=== PATIENT | male | born 1945 | race Caucasian/White ===

== ENCOUNTER 2019-07-10 03:01 | Inpatient (IN) | payer MEDICARE, OTHER ==
[~2019-07-10] VITALS: Ht 187.9 cm; Wt 97.5 kg
[~2019-07-10 03:01] MED LIST: ALOGLIPTIN25 MG PO; BASAG SOL SQ; CRESTOR40 M1 PO; GLEEVEC400 M1 PO; GLIPIZIDE10 M2 PO; LISINOPRIL10 M1 PO; METFORMIN HYD1000 MG PO; NORVASC5 MG PO; TOPROL XL25 MG PO; TRAZODONE100 MG PO; VITAMIN D32000 UNI1 PO; VOLTAREN100 GM T
[2019-07-10 03:11] VITALS: BP 159/66
[2019-07-10 04:26] LABS: BILIRUBIN NEGATIVE (NEGATIVE); BLOOD 2+ (NEGATIVE); CLARITY SL CLOUDY (CLEAR); COLOR YELLOW (YELLOW); GLUCOSE 2+ (NEGATIVE); KETONE NEGATIVE (NEGATIVE); LEUKO ESTERASE TRACE (NEGATIVE); NITRITE NEGATIVE (NEGATIVE); UROBILINOGEN 0.2 E.U./dl (0.2-1.0)
[2019-07-10 04:35] LABS: BACTERIA 2+; RBC 31-40 rbc/hpf (0-2); WBC 41-50 wbc/hpf (0-5)
[2019-07-10 05:20] LABS: ALBUMIN 2.8 gm/dl (3.1-4.5); ALKALINE PHOSPHATASE 120 U/L (45-117); BUN 19 mg/dl (7-24); CHLORIDE 100 mmol/L (98-107); CREATININE 1.34 mg/dL (0.70-1.30); POTASSIUM 3.5 mmol/L (3.5-5.1); SGOT/AST 17 IU/L (3-35); SGPT/ALT 20 U/L (12-78); SODIUM 133 mmol/L (136-145); TOTAL PROTEIN 6.6 gm/dL (6.4-8.2)
[2019-07-10 05:21] LABS: BASO % 0.1 % (0.0-1.0); HEMATOCRIT 30.2 % (42.0-52.0); HEMOGLOBIN 10.5 g/dl (14.0-18.0); LYMPH # 2.3 10*3/uL (1.3-4.4); LYMPH % 10.8 % (27.0-41.0); MEAN CELL VOLUME 92.4 fl (80.0-94.0); MEAN CORPUSCULAR HGB 32.1 pg (27.0-31.0); MEAN CORPUSCULAR HGB CONC 34.8 g/dl (33.0-37.0); MEAN PLATELET VOLUME 10.7 fl (9.6-12.3); MONO # 1.2 10*3/uL (0.1-1.0); MONO % 5.5 % (3.0-9.0); NEUT # 17.9 10*3/uL (2.3-7.9); PLATELET COUNT AUTOMATED 242 10*3/uL (130-400); RED BLOOD COUNT 3.27 10*6/uL (4.50-5.90); RED CELL DISTRI WIDTH 11.8 % (0-14.5); WHITE BLOOD COUNT 21.6 10*3/uL (4.8-10.8)
[2019-07-10 05:23] LABS: TROPONIN I 0.067 ng/ml (<0.045)
[2019-07-10 06:56] VITALS: BP 132/61
--- NOTE | 2019-07-10 08:00 | NUR ---
JODY BARNES AWARE OF ELEVATED TROPONIN OF 0.1
--- NOTE | 2019-07-10 08:15 | NUR ---
Time: 814 A 74 year old FEMALE admitted to 5E under services of EMILIE WYNN DO. Pt. arrived via stretcher from ER. Chief complaint: URINARY FREQUENCY/FALL. PRASANTH PEDRAZA
[2019-07-10 08:20] VITALS: BP 146/63
--- NOTE | 2019-07-10 08:30 | NUR ---
SPOKE TO JODY BARNES NP. MADE HER AWARE THAT IV FLUIDS WERE ORDERED PER SEPSIS PROTOCOL WHICH FOR THIS PATIENT WOULD BE AMOST 3 LITERS OF FLUID. PER JODY, ONLY GIVE ONE LITER OF FLUID BOLUS AT THIS TIME
--- NOTE | 2019-07-10 09:30 | NUR ---
patient void 150, bladder scan for 50. latia irvin np, notified.
[2019-07-10] MEDS ORDERED: NORVASC10 MG PO (09:33)
[2019-07-10] MEDS ORDERED: FEROSUL325 MG PO (09:33)
[2019-07-10] MEDS ORDERED: ASPIRIN ADULT L81 M1 PO (09:34)
[2019-07-10] MEDS ORDERED: ASCORBIC ACID500 M2 PO (09:35)
[2019-07-10 12:00] VITALS: BP 161/64
[2019-07-10 16:00] VITALS: BP 138/85
[2019-07-10 20:00] VITALS: BP 147/61
--- NOTE | 2019-07-10 20:33 | NUR ---
24 HR chart check completed.
--- NOTE | 2019-07-10 21:00 | NUR ---
RESTING IN BED WITH NO DISTRESS NOTED. RESPIRATIONS EASY. LUNGS DIMINISHED, CLEAR. PULSE OX 100% RA. TEDS IN PLACE. CALL LIGHT WITHIN REACH. NO VOICED COMPLAINTS. BED ALARM MAINTAINED FOR SAFETY
[2019-07-11] VITALS: BP 148/60
--- NOTE | 2019-07-11 | NUR ---
SLEEPING. NO DISTRESS NOTED. RESPIRATIONS EASY. VSS. CALL LIGHT WITHIN REACH. BED ALARM MAINTAINED FOR SAFETY
--- NOTE | 2019-07-11 03:00 | NUR ---
SLEEPING. NO DISTRESS NOTED. RESPIRATIONS EASY. CALL LIGHT WITHIN REACH
--- NOTE | 2019-07-11 06:00 | NUR ---
SLEPT THROUGHOUT NIGHT WITH NO DISTRESS NOTED. RESPIRATIONS EASY. CALL LIGHT WITHIN REACH. BED ALARM MAINTAINED FOR SAFETY
[2019-07-11 06:27] LABS: BASO % 0.1 % (0.0-1.0); EOS # 0.2 10*3/uL (0.0-0.4); EOS % 1.8 % (1.0-4.0); HEMATOCRIT 26.3 % (42.0-52.0); HEMOGLOBIN 8.9 g/dl (14.0-18.0); LYMPH # 2.5 10*3/uL (1.3-4.4); LYMPH % 18.6 % (27.0-41.0); MEAN CELL VOLUME 92.9 fl (80.0-94.0); MEAN CORPUSCULAR HGB 31.4 pg (27.0-31.0); MEAN CORPUSCULAR HGB CONC 33.8 g/dl (33.0-37.0); MEAN PLATELET VOLUME 10.7 fl (9.6-12.3); MONO # 1.1 10*3/uL (0.1-1.0); NEUT # 9.6 10*3/uL (2.3-7.9); NEUT % 70.9 % (47.0-73.0); PLATELET COUNT AUTOMATED 243 10*3/uL (130-400); RED BLOOD COUNT 2.83 10*6/uL (4.50-5.90); RED CELL DISTRI WIDTH 11.8 % (0-14.5); WHITE BLOOD COUNT 13.6 10*3/uL (4.8-10.8)
[2019-07-11 06:50] LABS: CHLORIDE 104 mmol/L (98-107); POTASSIUM 3.4 mmol/L (3.5-5.1); SODIUM 136 mmol/L (136-145)
[2019-07-11 07:06] LABS: BUN 21 mg/dl (7-24); CHOLESTEROL 131 mg/dL (<200); CREATININE 1.16 mg/dL (0.70-1.30); HDL CHOLESTEROL 27 mg/dl (40-60); LDL CHOLESTEROL 70 mg/dL (9-159); PHOSPHOROUS 2.1 mg/dL (2.5-4.9); THYROID STIM HORMONE (HS) 0.419 uIU/ml (0.358-4.75); TRIGLYCERIDES 171 mg/dl (<150); VLDL CHOLESTEROL 34 mg/dL (6-40)
[2019-07-11 07:08] LABS: CPK 286 U/L (39-308)
[2019-07-11 07:52] LABS: VITAMIN D, 25-HYDROXY 33.1 ng/mL (30-100)
[2019-07-11 08:00] VITALS: BP 146/61
--- NOTE | 2019-07-11 09:00 | NUR ---
Operating Room Scheduler in to talk to patient. Patient states lives at home with alone. There are no steps in the home. Physician: nicole [facility]acy: [facility] Home health services: none Patient's level of ADLs: INDEPENDENT Patient has working utilities: all working DME: cane Follow-up physician's appointment after d/c: will be made by hospitalist nurse director upon discharge Does patient want to access PORTAL?: no Discharge plan discussed with patient, he states he lives at home alone, he is independent in adls and ambulation, he drives, he states he will return home when medically stable and denies any home needs. JALEEL ZAMORANO
[2019-07-11 12:00] VITALS: BP 136/66
--- NOTE | 2019-07-11 13:30 | NUR ---
Occupational therapy orders received and OT evaluation completed in full on floor five. Patient precautions include fall risk, new use of a ww, bed/chair alarm, and occasional left knee pain. Per OT evabigail, OT recommends home with HH SN, OT, and PT with supervision assist as needed. [place], [address]. Thank you for the referral. Brina To, OTR/L
--- NOTE | 2019-07-11 15:09 | NUR ---
case management faxed patient's information to [facility] to follow when patient is medically stable for discharge
--- NOTE | 2019-07-11 15:35 | NUR ---
PHYSICAL THERAPY Rand completed moderate level of complexity 65083 recomend home with family assist and per pt his "friend" Romina with HH and use of FWW. PT to work on transfers, amb/balance, safety and strengthening Sheila Gerard PT
[2019-07-11 16:00] VITALS: BP 115/53
[2019-07-11 20:00] VITALS: BP 155/61
[2019-07-12] VITALS: BP 137/61
[2019-07-12 06:24] LABS: BASO % 0.2 % (0.0-1.0); EOS # 0.2 10*3/uL (0.0-0.4); EOS % 1.9 % (1.0-4.0); HEMATOCRIT 27.8 % (42.0-52.0); HEMOGLOBIN 9.3 g/dl (14.0-18.0); LYMPH # 2.5 10*3/uL (1.3-4.4); LYMPH % 20.1 % (27.0-41.0); MEAN CELL VOLUME 94.6 fl (80.0-94.0); MEAN CORPUSCULAR HGB 31.6 pg (27.0-31.0); MEAN CORPUSCULAR HGB CONC 33.5 g/dl (33.0-37.0); MEAN PLATELET VOLUME 10.7 fl (9.6-12.3); MONO # 0.9 10*3/uL (0.1-1.0); MONO % 7.5 % (3.0-9.0); NEUT # 8.6 10*3/uL (2.3-7.9); NEUT % 69.7 % (47.0-73.0); PLATELET COUNT AUTOMATED 254 10*3/uL (130-400); RED BLOOD COUNT 2.94 10*6/uL (4.50-5.90); RED CELL DISTRI WIDTH 11.9 % (0-14.5); WHITE BLOOD COUNT 12.4 10*3/uL (4.8-10.8)
[2019-07-12 06:41] LABS: BUN 24 mg/dl (7-24); CHLORIDE 105 mmol/L (98-107); CREATININE 1.25 mg/dL (0.70-1.30); POTASSIUM 3.7 mmol/L (3.5-5.1); SODIUM 136 mmol/L (136-145)
[2019-07-12 08:00] VITALS: BP 146/53
--- NOTE | 2019-07-12 09:00 | NUR ---
case management visits with patient, he will return home when medically stable and will have [facility], no other needs at this time
--- NOTE | 2019-07-12 09:31 | NUR ---
OT NOTE Pt was seen this A.M. 1:1 for 25 minute OT session. Upon arrival pt was sitting upright in the recliner. Pt identified by name and and had no complaints at this time. While sitting upright in the recliner pt donned B socks and shoes with supervision. Sit to stand completed from chair level with SBA and use of w/w for UE support. Functional mobility was then completed to the bathroom with CGA and use of w/w with one verbal prompt to slow down to being impulsive increasing risk of falls, pt then presented with good carry over throughout rest of session. While in the bathroom pt transferred on /off standard commode with SBA. Pt then stood sink side while washing his hands with CGA for safety. Functional mobility completed back to the recliner, where pt did not sit. Continued to challenged pt's standing tolerance needed for increased I in self care tasks and functional transfers and pt was able to tolerate aprox 8 minutes at a time before sitting due to fatigue. Then had pt stand without UE support, challenged pt's dynamic standing balance while weight shifting, crossing midline, and reaching over all planes. Pt was able to maintain G- standing balance throughout. Pt was left sitting upright in the recliner with call light in hand, tray table in place, and body alarm activated for safety. Continue with rec D/C plan to home. NITA Salvador/Naomie
[2019-07-12] MEDS ORDERED: LEVOFLOXACIN500 MG PO (10:16)
--- NOTE | 2019-07-12 10:48 | NUR ---
PT DISCHARGED AT THIS TIME. IV REMOVED AND PRESSURE DRESSING APPLIED. VERBALIZED UNDERSTANDING OF DISCHARGE INSTRUCTIONS.
--- NOTE | 2019-07-12 13:52 | NUR ---
case management contacted Emily at [facility], left voicemail that patient is discharge to home today
--- NOTE | 2019-07-13 07:31 | NUR ---
PHYSICAL THERAPY CO-SIGN I approve of the Physical Therapy notes written above. Sheila Gerard PT
--- NOTE | 2019-07-13 08:34 | NUR ---
Received call from Philipp EISENBERG at [facility] who stated when he contacted this patient he was told patient did not want home health visiting nurses. order cancelled.
== END 2019-07-12 10:48 | disposition home or self-care (01) | DRG 689 ==
LOC: ED 03:01 → EDHOLD 06:37 → 5E 06:37 → EDHOLD 06:59 → 5E 07:35
PROVIDERS: Emergency Medicine; Registered Nurse; Student in an Organized Health Care Education/Training Program; ADMIT Family Medicine
DX: N39.0 Urinary tract infection, site not specified (principal); G93.41 Metabolic encephalopathy; E43 Unspecified severe protein-calorie malnutrition; I95.1 Orthostatic hypotension; R31.9 Hematuria, unspecified; T79.6XXA Traumatic ischemia of muscle, initial encounter; E86.0 Dehydration; R79.89 Other specified abnormal findings of blood chemistry; E11.9 Type 2 diabetes mellitus without complications; E78.2 Mixed hyperlipidemia; I10 Essential (primary) hypertension; X58.XXXA Exposure to other specified factors, initial encounter; E83.39 Other disorders of phosphorus metabolism; D64.9 Anemia, unspecified; R26.81 Unsteadiness on feet; Z85.6 Personal history of leukemia; Z68.27 Body mass index [BMI] 27.0-27.9, adult; Z79.4 Long term (current) use of insulin; Z88.0 Allergy status to penicillin; Z79.899 Other long term (current) drug therapy; Z83.3 Family history of diabetes mellitus; Z82.49 Family history of ischemic heart disease and other diseases of the circulatory system; Z80.9 Family history of malignant neoplasm, unspecified

== ENCOUNTER 2020-02-12 11:29 | Observation (INO) | payer OTHER ==
[~2020-02-12] VITALS: Ht 177.8 cm; Wt 91.9 kg
[~2020-02-12 11:29] MED LIST changes: +ASCORBIC ACID500 M2 PO; +ASPIRIN ADULT L81 M1 PO; +FEROSUL325 MG PO; +LEVOFLOXACIN500 MG PO; +NORVASC10 MG PO
[2020-02-12 11:38] VITALS: BP 128/61
[2020-02-12 12:30] LABS: BASO # 0.1 10*3/uL (0.0-0.1); BASO % 0.3 % (0.0-1.0); EOS # 0.2 10*3/uL (0.0-0.4); EOS % 1.3 % (1.0-4.0); LYMPH # 3.4 10*3/uL (1.3-4.4); LYMPH % 22.8 % (27.0-41.0); MEAN CELL VOLUME 92.1 fl (80.0-94.0); MEAN CORPUSCULAR HGB 30.9 pg (27.0-31.0); MEAN CORPUSCULAR HGB CONC 33.6 g/dl (33.0-37.0); MEAN PLATELET VOLUME 11.8 fl (9.6-12.3); MONO # 0.8 10*3/uL (0.1-1.0); MONO % 5.4 % (3.0-9.0); NEUT # 10.5 10*3/uL (2.3-7.9); NEUT % 69.7 % (47.0-73.0); PLATELET COUNT AUTOMATED 166 10*3/uL (130-400); RED BLOOD COUNT 3.91 10*6/uL (4.50-5.90); RED CELL DISTRI WIDTH 12.7 % (0-14.5); WHITE BLOOD COUNT 15.1 10*3/uL (4.8-10.8)
[2020-02-12 12:43] LABS: BILIRUBIN NEGATIVE; BLOOD NEGATIVE (NEGATIVE); CLARITY CLOUDY (CLEAR); COLOR YELLOW (YELLOW); GLUCOSE TRACE; KETONE NEGATIVE; LEUKO ESTERASE NEGATIVE (NEGATIVE); NITRITE NEGATIVE (NEGATIVE); SPECIFIC GRAVITY 1.025 (1.001-1.030); UROBILINOGEN 0.2 E.U./dl (0.0-1.0)
[2020-02-12 12:51] LABS: ALBUMIN 3.1 gm/dl (3.1-4.5); CREATININE 1.7 mg/dL (0.70-1.30); POTASSIUM 3.7 mmol/L (3.5-5.1); TOTAL PROTEIN 6.7 gm/dL (6.4-8.2)
[2020-02-12 12:52] LABS: TROPONIN I 0.016 ng/ml (<0.045)
[2020-02-12 12:53] LABS: BACTERIA 2+; EPITHELIAL CELLS 16-20; MUCOUS 2+; YEAST 1+
[2020-02-12 13:10] LABS: ACT PARTIAL THROMBO TIME 22.9 SECONDS (20.0-32.1)
[2020-02-12 16:37] VITALS: BP 95/65
--- NOTE | 2020-02-12 16:45 | NUR ---
Time: 1644 A 74 year old FEMALE admitted to 4E under services of EZEKIEL MITCHELL DO. Pt. arrived via stretcher from ER. Chief complaint: NAUSEA & VOMITING, GENERALIZED WEAKNESS. KENNEDI MCMANUS
[2020-02-12 17:00] VITALS: BP 118/60
--- NOTE | 2020-02-12 18:32 | NUR ---
CALL PLACED TO DR. FRY, NO ANSWER LEFT MESSAGE FOR CALL BACK.
[2020-02-12 20:00] VITALS: BP 136/55
[2020-02-13] VITALS: BP 123/65
--- NOTE | 2020-02-13 00:51 | NUR ---
Patient resting quietly with no c/o discomfort. Respirations easy and regular. Vital signs stable. No overt distress. CALL LIGHT WITHIN REACH. MELL MANDEL
[2020-02-13 06:55] LABS: BASO # 0.1 10*3/uL (0.0-0.1); BASO % 0.4 % (0.0-1.0); EOS # 0.2 10*3/uL (0.0-0.4); EOS % 1.3 % (1.0-4.0); HEMATOCRIT 30.5 % (42.0-52.0); LYMPH # 2.8 10*3/uL (1.3-4.4); LYMPH % 23.5 % (27.0-41.0); MEAN CELL VOLUME 92.4 fl (80.0-94.0); MEAN CORPUSCULAR HGB 30.6 pg (27.0-31.0); MEAN CORPUSCULAR HGB CONC 33.1 g/dl (33.0-37.0); MEAN PLATELET VOLUME 11.1 fl (9.6-12.3); MONO # 0.8 10*3/uL (0.1-1.0); MONO % 7.1 % (3.0-9.0); NEUT % 67.1 % (47.0-73.0); PLATELET COUNT AUTOMATED 179 10*3/uL (130-400); RED CELL DISTRI WIDTH 12.5 % (0-14.5); WHITE BLOOD COUNT 11.9 10*3/uL (4.8-10.8)
[2020-02-13 07:17] LABS: ACT PARTIAL THROMBO TIME 22.9 SECONDS (20.0-32.1); INTERNATIONAL NORM RATIO 1.1 (2.0-3.5)
[2020-02-13 07:24] LABS: ALBUMIN 2.4 gm/dl (3.1-4.5); POTASSIUM 3.7 mmol/L (3.5-5.1)
[2020-02-13 07:29] LABS: CREATININE 1.5 mg/dL (0.70-1.30); FREE T4 1.34 ng/dl (0.76-1.46); THYROID STIM HORMONE (HS) 0.605 uIU/ml (0.358-4.75); TOTAL PROTEIN 5.5 gm/dL (6.4-8.2)
[2020-02-13 08:00] VITALS: BP 155/90
[2020-02-13 08:25] LABS: VITAMIN D, 25-HYDROXY 31.6 ng/mL (30-100)
--- NOTE | 2020-02-13 09:00 | NUR ---
Fur Trimmer in to talk to patient. Patient states lives at home with friend. There are no steps in the home. Physician: alexsandra de la rosa [facility]acy: [facility] Home health services: none Patient's level of ADLs: INDEPENDENT Patient has working utilities: all working DME: none Follow-up physician's appointment after d/c: will be made by hospitalist nurse director upon discharge Does patient want to access PORTAL?: no Discharge plan discussed with patient, he states he lives at home with a friend, he stated he is independent in adls and ambulation, drives, he stated he will return home when discharged and denies any home needs, case management will follow. JALEEL ZAMORANO
[2020-02-13] MEDS ORDERED: BASAG SOL SQ (11:20)
--- NOTE | 2020-02-13 11:27 | NUR ---
case management contacted [facility] regarding patient being admitted to this facility, spoke to Felipa. patient's information given. Felipa asked that clinicals be faxed. case management faxed admitting clinicals
[2020-02-13] MEDS ORDERED: NOVOLOG FL100 UNIT/2 SC (11:47)
[2020-02-13 12:00] VITALS: BP 160/58
--- NOTE | 2020-02-13 13:50 | NUR ---
PT DISCHARGED HOME AT THIS TIME. FOLLOW UP CARE AND PRESCRIPTIONS DISCUSSED. HEPLOCK REMOVED.
== END 2020-02-13 13:50 | disposition home or self-care (01) ==
LOC: ED 11:29 → 4E 14:45 → EDHOLD 14:45 → 4E 14:45
PROVIDERS: Emergency Medicine; Internal Medicine; ADMIT Internal Medicine; ATTEND Internal Medicine
DX: R53.1 Weakness (principal); R11.2 Nausea with vomiting, unspecified; R00.0 Tachycardia, unspecified; D72.829 Elevated white blood cell count, unspecified; D64.9 Anemia, unspecified; E87.1 Hypo-osmolality and hyponatremia; N17.0 Acute kidney failure with tubular necrosis; R73.9 Hyperglycemia, unspecified; E11.65 Type 2 diabetes mellitus with hyperglycemia; I10 Essential (primary) hypertension; E55.9 Vitamin D deficiency, unspecified; E78.5 Hyperlipidemia, unspecified; R13.10 Dysphagia, unspecified; E83.52 Hypercalcemia; E43 Unspecified severe protein-calorie malnutrition; E83.39 Other disorders of phosphorus metabolism; K21.9 Gastro-esophageal reflux disease without esophagitis; E66.9 Obesity, unspecified; Z68.32 Body mass index [BMI] 32.0-32.9, adult

== ENCOUNTER 2020-02-22 16:59 | Emergency (ER) | payer MEDICARE, OTHER ==
[~2020-02-22] VITALS: Ht 177.8 cm; Wt 99.8 kg
[~2020-02-22 16:59] MED LIST changes: +NOVOLOG FL100 UNIT/2 SC
== END 2020-02-22 18:52 | disposition home or self-care (01) ==
LOC: ED 16:59
DX: S61.411A Laceration without foreign body of right hand, initial encounter (principal); K21.9 Gastro-esophageal reflux disease without esophagitis; E78.5 Hyperlipidemia, unspecified; I10 Essential (primary) hypertension; E11.9 Type 2 diabetes mellitus without complications; Z88.0 Allergy status to penicillin; Z79.899 Other long term (current) drug therapy; Z79.82 Long term (current) use of aspirin; W26.0XXA Contact with knife, initial encounter; Y93.89 Activity, other specified; Y92.89 Other specified places as the place of occurrence of the external cause; Y99.8 Other external cause status

== ENCOUNTER 2024-08-12 17:15 | Emergency (ER) | payer OTHER ==
[~2024-08-12] VITALS: Ht 177.8 cm; Wt 78.5 kg
[~2024-08-12 17:15] MED LIST changes: +CARDURA4 MG PO; +DONEPEZIL HCL10 MG PO; +JARDIANCE25 MG PO; +MAG-OXIDE200 MG PO; +MEMANTINE HCL10 MG PO; +MIRTAZAPINE15 M2 PO; +OMNICEF300 MG PO; +OZEMPIC0.25 MG/03 SQ; +RIVASTIGMINE1 EACH T; +VENLAFAXINE H37.5 M5 PO; +VENLAFAXINE75 M1 PO
[2024-08-12 18:13] LABS: BASO % 0.1 % (0.0-1.0); HEMATOCRIT 31.3 % (42.0-52.0); MEAN CELL VOLUME 100.3 fl (80.0-94.0); MEAN CORPUSCULAR HGB 32.7 pg (27.0-31.0); MEAN CORPUSCULAR HGB CONC 32.6 g/dl (33.0-37.0); MEAN PLATELET VOLUME 9.8 fl (9.6-12.3); MONO # 0.6 10*3/uL (0.1-1.0); MONO % 5.7 % (3.0-9.0); NEUT # 9.5 10*3/uL (2.3-7.9); PLATELET COUNT AUTOMATED 147 10*3/uL (130-400); RED BLOOD COUNT 3.12 10*6/uL (4.50-5.90); RED CELL DISTRI WIDTH 12.5 % (0-14.5)
[2024-08-12 18:15] LABS: BILIRUBIN Negative (Negative); BLOOD 1+ (Negative); CLARITY Cloudy (Clear); COLOR Yellow (Yellow); GLUCOSE 3+ (Negative); KETONE 1+ (Negative); LEUKO ESTERASE Trace (Negative); NITRITE Negative (Negative); SPECIFIC GRAVITY 1.025 (1.001-1.030); UROBILINOGEN 0.2 E.U./dl (0.0-1.0)
[2024-08-12 18:27] LABS: BACTERIA 1+
[2024-08-12 18:31] LABS: POTASSIUM 4.1 mmol/L (3.4-5.1)
[2024-08-12] MEDS ORDERED: VIBRAMYCIN100 MG PO (18:53)
[2024-08-12] MEDS ORDERED: Doxycycline Hyclate 100 MG TAB PO ONE (18:55)
== END 2024-08-12 19:26 | disposition home or self-care (01) ==
LOC: ED 17:15
PROVIDERS: Physician Assistant Medical
DX: S80.212A Abrasion, left knee, initial encounter (principal); N39.0 Urinary tract infection, site not specified; N50.89 Other specified disorders of the male genital organs; L03.116 Cellulitis of left lower limb; I10 Essential (primary) hypertension; E78.5 Hyperlipidemia, unspecified; E11.9 Type 2 diabetes mellitus without complications; K21.9 Gastro-esophageal reflux disease without esophagitis; Z88.0 Allergy status to penicillin; Z79.4 Long term (current) use of insulin; Z79.899 Other long term (current) drug therapy; Z79.82 Long term (current) use of aspirin; Z79.84 Long term (current) use of oral hypoglycemic drugs; Z98.890 Other specified postprocedural states; Z85.6 Personal history of leukemia; W18.09XA Striking against other object with subsequent fall, initial encounter; Y93.89 Activity, other specified; Y92.238 Other place in hospital as the place of occurrence of the external cause; Y99.8 Other external cause status

== ENCOUNTER 2024-08-15 10:08 | Inpatient (IN) | payer OTHER ==
[~2024-08-15] VITALS: Ht 175.2 cm; Wt 88.5 kg
[~2024-08-15 10:08] MED LIST changes: +VIBRAMYCIN100 MG PO
[2024-08-15 10:21] VITALS: BP 156/59
[2024-08-15 10:45] LABS: BASO % 0.1 % (0.0-1.0); EOS % 0.2 % (1.0-4.0); HEMATOCRIT 29.9 % (42.0-52.0); MEAN CELL VOLUME 98.4 fl (80.0-94.0); MEAN CORPUSCULAR HGB 32.9 pg (27.0-31.0); MEAN CORPUSCULAR HGB CONC 33.4 g/dl (33.0-37.0); MEAN PLATELET VOLUME 10.3 fl (9.6-12.3); MONO % 9.1 % (3.0-9.0); NEUT % 80.8 % (47.0-73.0); PLATELET COUNT AUTOMATED 126 10*3/uL (130-400); RED BLOOD COUNT 3.04 10*6/uL (4.50-5.90); RED CELL DISTRI WIDTH 12.3 % (0-14.5); WHITE BLOOD COUNT 11.2 10*3/uL (4.8-10.8)
[2024-08-15 11:02] LABS: POTASSIUM 4.1 mmol/L (3.4-5.1)
[2024-08-15] MEDS ORDERED: GLUCOSE33 GM PO (11:24)
[2024-08-15] MEDS ORDERED: CEFEPIME HCL IN DEXTROSE 5 % 50 ML IV ONE (12:00)
[2024-08-15] MEDS ORDERED: SODIUM CHLORIDE 0.9% 1,000 ML IV ONE ×2 (12:00→14:55)
[2024-08-15] MEDS ORDERED: Vancomycin Hydrochloride 250 ML IV ONE (12:00)
[2024-08-15] MEDS ORDERED: Magnesium Hydroxide 30 ML UDC PO PRN (14:15)
[2024-08-15] MEDS ORDERED: ACETAMINOPHEN 325 MG TAB PO PRN (14:15)
[2024-08-15] MEDS ORDERED: ACETAMINOPHEN 650 MG SUPP R PRN (14:15)
[2024-08-15] MEDS ORDERED: BISACODYL 5 MG TAB PO PRN (14:15)
[2024-08-15] MEDS ORDERED: BISACODYL 10 MG SUPP R PRN (14:15)
[2024-08-15] MEDS ORDERED: Ondansetron Hydrochloride 4 MG/2 ML VIAL IV PRN (14:15)
[2024-08-15] MEDS ORDERED: Acetaminophen/Hydrocodone 5 MG/325 MG TABLET PO PRN (14:15)
[2024-08-15] MEDS ORDERED: TEMAZEPAM 15 MG CAP PO PRN (14:15)
[2024-08-15 15:21] LABS: BILIRUBIN Negative (Negative); BLOOD 1+ (Negative); CLARITY Clear (Clear); COLOR Yellow (Yellow); GLUCOSE 3+ (Negative); KETONE Trace (Negative); LEUKO ESTERASE Negative (Negative); NITRITE Negative (Negative); SPECIFIC GRAVITY 1.015 (1.001-1.030); UROBILINOGEN 0.2 E.U./dl (0.0-1.0)
[2024-08-15 15:28] LABS: BACTERIA 1+; FINE GRANULAR CAST 0-2; MUCOUS 1+
[2024-08-15 15:29] VITALS: BP 168/66
[2024-08-15 16:15] VITALS: BP 161/68
[2024-08-15] MEDS ORDERED: DEXTROSE 10 % IN WATER 250 ML IV PRN (17:45)
[2024-08-15] MEDS ORDERED: Insulin Glargine, Recombinan 1 UNIT/0.01 ML SC SCH (18:00)
[2024-08-15 20:00] VITALS: BP 163/53
[2024-08-15] MEDS ORDERED: INSULIN LISPRO 1 UNIT/0.01 ML SQ SCH (22:00)
[2024-08-15] MEDS ORDERED: Memantine Hydrochloride 10 MG TAB PO SCH (22:00)
[2024-08-16] VITALS: BP 155/67
[2024-08-16 07:11] LABS: HEMATOCRIT 28.9 % (42.0-52.0); MEAN CORPUSCULAR HGB 32.3 pg (27.0-31.0); MEAN CORPUSCULAR HGB CONC 33.2 g/dl (33.0-37.0); MEAN PLATELET VOLUME 10.7 fl (9.6-12.3); PLATELET COUNT AUTOMATED 152 10*3/uL (130-400); RED BLOOD COUNT 2.97 10*6/uL (4.50-5.90); RED CELL DISTRI WIDTH 12.2 % (0-14.5); WHITE BLOOD COUNT 17.6 10*3/uL (4.8-10.8)
[2024-08-16 07:14] LABS: MANUAL DIFF REFLEX YES; MEAN CELL VOLUME 97.3 fl (80.0-94.0)
[2024-08-16 07:23] LABS: FREE T4 1.41 ng/dl (0.89-1.76); POTASSIUM 3.8 mmol/L (3.4-5.1); TOTAL PROTEIN 5.3 gm/dL (6.0-8.0)
[2024-08-16 08:00] VITALS: BP 153/50
[2024-08-16 09:24] LABS: TOTAL CELLS COUNTED 100 #CELLS
[2024-08-16 09:27] LABS: PLATELET SUFFICIENCY NORMAL (NORMAL)
[2024-08-16] MEDS ORDERED: Vancomycin Hydrochloride 1,000 MG in SODIUM CHLORIDE 0.9% 250 ML IV SCH (10:00)
[2024-08-16] MEDS ORDERED: ASPIRIN, CHEWABLE 81 MG TAB PO SCH (10:00)
[2024-08-16] MEDS ORDERED: Rivastigmine Tartrate 4.6 MG/24 HR PATCH T SCH (10:00)
[2024-08-16] MEDS ORDERED: amLODIPine besylate 10 MG TAB PO SCH (10:00)
[2024-08-16] MEDS ORDERED: Venlafaxine Hydrochloride 37.5 MG CAP PO SCH (10:00)
[2024-08-16] MEDS ORDERED: ATORVASTATIN CALCIUM 40 MG TABLET PO SCH (10:00)
[2024-08-16] MEDS ORDERED: Enoxaparin Sodium 40 MG/0.4 ML SYR SC SCH (10:00)
[2024-08-16] MEDS ORDERED: DOXAZOSIN MESYLATE 4 MG TAB PO SCH (10:00)
[2024-08-16] MEDS ORDERED: DONEPEZIL 10 MG TAB PO SCH (10:00)
[2024-08-16] MEDS ORDERED: CEFEPIME HCL IN DEXTROSE 5 % 50 ML IV SCH ×2 (10:00→12:00)
[2024-08-16] MEDS ORDERED: Insulin Glargine, Recombinan 1 UNIT/0.01 ML SC SCH (10:00)
[2024-08-16] MEDS ORDERED: MUPIROCIN 15 GM TUBE T SCH (10:00)
[2024-08-16 12:00] VITALS: BP 124/52
[2024-08-16] MEDS ORDERED: SODIUM CHLORIDE 0.9% 1,000 ML IV ONE (14:45)
[2024-08-16 16:00] VITALS: BP 135/63
[2024-08-16] MEDS ORDERED: HEEL PROTECTOR DEVICE ONE (18:45)
[2024-08-16 20:00] VITALS: BP 146/58
[2024-08-17] VITALS: BP 148/53
[2024-08-17 06:23] LABS: HEMATOCRIT 27.8 % (42.0-52.0); MEAN CELL VOLUME 99.6 fl (80.0-94.0); MEAN CORPUSCULAR HGB 32.6 pg (27.0-31.0); MEAN CORPUSCULAR HGB CONC 32.7 g/dl (33.0-37.0); MEAN PLATELET VOLUME 10.7 fl (9.6-12.3); PLATELET COUNT AUTOMATED 160 10*3/uL (130-400); RED BLOOD COUNT 2.79 10*6/uL (4.50-5.90); RED CELL DISTRI WIDTH 12.2 % (0-14.5); WHITE BLOOD COUNT 19.2 10*3/uL (4.8-10.8)
[2024-08-17 06:30] LABS: POTASSIUM 4.1 mmol/L (3.4-5.1)
[2024-08-17 06:36] LABS: MANUAL DIFF REFLEX YES
[2024-08-17] MEDS ORDERED: SODIUM CHLORIDE 0.9% 1,000 ML IV ONE (07:20)
[2024-08-17 08:00] VITALS: BP 138/52
[2024-08-17 08:08] LABS: TOTAL CELLS COUNTED 100 #CELLS
[2024-08-17 08:10] LABS: BURR CELLS FEW
[2024-08-17 08:11] LABS: PLATELET SUFFICIENCY NORMAL (NORMAL)
[2024-08-17 12:00] VITALS: BP 139/51
[2024-08-17 16:00] VITALS: BP 129/48
[2024-08-17 20:00] VITALS: BP 137/51
[2024-08-18] VITALS: BP 138/55
[2024-08-18 06:46] LABS: POTASSIUM 3.8 mmol/L (3.4-5.1)
[2024-08-18 06:49] LABS: BASO % 0.2 % (0.0-1.0); EOS # 0.2 10*3/uL (0.0-0.4); EOS % 1.5 % (1.0-4.0); HEMATOCRIT 26.3 % (42.0-52.0); MEAN CELL VOLUME 98.1 fl (80.0-94.0); MEAN CORPUSCULAR HGB 32.5 pg (27.0-31.0); MEAN CORPUSCULAR HGB CONC 33.1 g/dl (33.0-37.0); MONO # 1.2 10*3/uL (0.1-1.0); MONO % 8.3 % (3.0-9.0); NEUT # 11.2 10*3/uL (2.3-7.9); NEUT % 75.7 % (47.0-73.0); PLATELET COUNT AUTOMATED 182 10*3/uL (130-400); RED BLOOD COUNT 2.68 10*6/uL (4.50-5.90); RED CELL DISTRI WIDTH 12.6 % (0-14.5); WHITE BLOOD COUNT 14.8 10*3/uL (4.8-10.8)
[2024-08-18 08:00] VITALS: BP 148/53
[2024-08-18 12:00] VITALS: BP 140/45
[2024-08-18 16:00] VITALS: BP 133/53
[2024-08-18 16:04] LABS: A/G RATIO 0.9 (0.7-1.7); ALBUMIN 2.3 g/dL (2.9-4.4); ALPHA-1-GLOBULIN 0.3 g/dL (0.0-0.4); ALPHA-2-GLOBULIN 0.8 g/dL (0.4-1.0); BETA GLOBULIN 0.7 g/dL (0.7-1.3); GAMMA GLOBULIN 0.9 g/dL (0.4-1.8); GLOBULIN, TOTAL 2.6 g/dL (2.2-3.9)
[2024-08-18] MEDS ORDERED: SODIUM CHLORIDE 0.9% 1,000 ML IV ONE (16:45)
[2024-08-18 17:04] LABS: ALBUMIN, URINE 26.1 % (.); ALPHA-1-GLOBULIN, URINE 1.8 % (.); ALPHA-2-GLOBULIN, URINE 20.2 % (.); BETA GLOBULIN, URINE 20.8 % (.); GAMMA GLOBULIN, URINE 31.2 % (.); M-SPIKE, % Comment: % (Not Observed)
[2024-08-18 20:00] VITALS: BP 133/53; BP 135/334
[2024-08-19] VITALS: BP 135/334
[2024-08-19] MEDS ORDERED: CEFDINIR300 MG PO (00:18)
[2024-08-19 04:00] VITALS: BP 131/64
[2024-08-19] MEDS ORDERED: NYSTATIN 15 GM BOT T SCH (06:00)
[2024-08-19 06:16] LABS: BASO % 0.3 % (0.0-1.0); EOS # 0.5 10*3/uL (0.0-0.4); EOS % 3.9 % (1.0-4.0); HEMATOCRIT 26.8 % (42.0-52.0); MEAN CELL VOLUME 99.6 fl (80.0-94.0); MEAN CORPUSCULAR HGB 32.3 pg (27.0-31.0); MEAN CORPUSCULAR HGB CONC 32.5 g/dl (33.0-37.0); MEAN PLATELET VOLUME 10.7 fl (9.6-12.3); MONO # 1.2 10*3/uL (0.1-1.0); MONO % 10.1 % (3.0-9.0); NEUT # 7.6 10*3/uL (2.3-7.9); NEUT % 62.7 % (47.0-73.0); PLATELET COUNT AUTOMATED 187 10*3/uL (130-400); RED BLOOD COUNT 2.69 10*6/uL (4.50-5.90); RED CELL DISTRI WIDTH 12.6 % (0-14.5); WHITE BLOOD COUNT 12.2 10*3/uL (4.8-10.8)
[2024-08-19 07:09] LABS: POTASSIUM 4.5 mmol/L (3.4-5.1)
[2024-08-19 08:00] VITALS: BP 137/59
[2024-08-19 12:00] VITALS: BP 150/63
[2024-08-19 16:00] VITALS: BP 145/58
[2024-08-19] MEDS ORDERED: LEVOFLOXACIN 750 MG TAB PO SCH (18:00)
[2024-08-19 20:00] VITALS: BP 146/70
[2024-08-19] MEDS ORDERED: LEVOFLOXACIN750 M2 PO (22:53)
[2024-08-20] VITALS: BP 146/59
[2024-08-20 07:07] LABS: BASO % 0.3 % (0.0-1.0); EOS # 0.5 10*3/uL (0.0-0.4); HEMATOCRIT 26.2 % (42.0-52.0); MEAN CELL VOLUME 99.6 fl (80.0-94.0); MEAN CORPUSCULAR HGB 32.3 pg (27.0-31.0); MEAN CORPUSCULAR HGB CONC 32.4 g/dl (33.0-37.0); MEAN PLATELET VOLUME 10.8 fl (9.6-12.3); MONO % 8.1 % (3.0-9.0); NEUT # 8.3 10*3/uL (2.3-7.9); NEUT % 65.5 % (47.0-73.0); RED BLOOD COUNT 2.63 10*6/uL (4.50-5.90); RED CELL DISTRI WIDTH 12.6 % (0-14.5); WHITE BLOOD COUNT 12.6 10*3/uL (4.8-10.8)
[2024-08-20 07:10] LABS: PLATELET COUNT AUTOMATED 255 10*3/uL (130-400)
[2024-08-20 07:40] LABS: POTASSIUM 4.1 mmol/L (3.4-5.1)
[2024-08-20 08:00] VITALS: BP 156/84
[2024-08-20] MEDS ORDERED: SODIUM CHLORIDE 0.9% 1,000 ML IV ONE (09:40)
[2024-08-20 11:41] VITALS: BP 148/54
[2024-08-20] MEDS ORDERED: CINACALCET HCL30 MG PO (13:26)
[2024-08-20] MEDS ORDERED: NYAMYC15 GM T (13:26)
[2024-08-20] MEDS ORDERED: Bactroban Oint22 GM T (13:26)
[2024-08-20 16:00] VITALS: BP 142/71
[2024-08-21] MEDS ORDERED: LEVOFLOXACIN 750 MG TAB PO SCH (10:00)
== END 2024-08-20 18:00 | DRG 602 ==
LOC: ED 10:08 → EDHOLD 13:23 → 5E 14:18 → EDHOLD 14:19 → 5E 16:07
PROVIDERS: Internal Medicine; Student in an Organized Health Care Education/Training Program; ADMIT Internal Medicine; ATTEND Internal Medicine
DX: L03.116 Cellulitis of left lower limb (principal); E43 Unspecified severe protein-calorie malnutrition; N17.0 Acute kidney failure with tubular necrosis; E87.1 Hypo-osmolality and hyponatremia; D84.9 Immunodeficiency, unspecified; I77.6 Arteritis, unspecified; E11.65 Type 2 diabetes mellitus with hyperglycemia; N18.9 Chronic kidney disease, unspecified; I13.10 Hypertensive heart and chronic kidney disease without heart failure, with stage 1 through stage 4 chronic kidney disease, or unspecified chronic kidney disease; E11.22 Type 2 diabetes mellitus with diabetic chronic kidney disease; E11.51 Type 2 diabetes mellitus with diabetic peripheral angiopathy without gangrene; F03.90 Unspecified dementia, unspecified severity, without behavioral disturbance, psychotic disturbance, mood disturbance, and anxiety; D53.9 Nutritional anemia, unspecified; D35.1 Benign neoplasm of parathyroid gland; I08.3 Combined rheumatic disorders of mitral, aortic and tricuspid valves; E21.3 Hyperparathyroidism, unspecified; K21.9 Gastro-esophageal reflux disease without esophagitis; D69.6 Thrombocytopenia, unspecified; E55.9 Vitamin D deficiency, unspecified; E78.2 Mixed hyperlipidemia; Z85.6 Personal history of leukemia; Z79.4 Long term (current) use of insulin; Z88.0 Allergy status to penicillin; Z82.49 Family history of ischemic heart disease and other diseases of the circulatory system; Z79.2 Long term (current) use of antibiotics; Z79.899 Other long term (current) drug therapy; Z79.82 Long term (current) use of aspirin; Z68.28 Body mass index [BMI] 28.0-28.9, adult

== ENCOUNTER 2024-12-13 20:41 | Emergency (ER) | payer MEDICARE ==
[~2024-12-13] VITALS: Ht 177.8 cm; Wt 80.5 kg
[~2024-12-13 20:41] MED LIST changes: +Bactroban Oint22 GM T; +CEFDINIR300 MG PO; +CINACALCET HCL30 MG PO; +GLUCOSE33 GM PO; +LEVOFLOXACIN750 M2 PO; +NYAMYC15 GM T
[2024-12-13 21:37] LABS: BASO # 0.0 10*3/uL (0.0-0.1); BASO % 0.3 % (0.0-1.0); EOS # 0.1 10*3/uL (0.0-0.4); EOS % 1.1 % (1.0-4.0); MEAN CELL VOLUME 96.1 fl (80.0-94.0); MEAN CORPUSCULAR HGB 31.4 pg (27.0-31.0); MEAN PLATELET VOLUME 9.9 fl (9.6-12.3); MONO # 1.0 10*3/uL (0.1-1.0); MONO % 8.7 % (3.0-9.0); NEUT # 8.0 10*3/uL (2.3-7.9); NEUT % 67.6 % (47.0-73.0); NUCLEATED RED BLOOD CELL 0.0 % (0.0-0.0); NUCLEATED RED BLOOD CELL 0.0 10*3/uL (0.0-0.0); PLATELET COUNT AUTOMATED 157 10*3/uL (130-400); RED CELL DISTRI WIDTH 12.0 % (0-14.5)
[2024-12-13 21:52] LABS: BUN 39.0 mg/dl (9-23)
[2024-12-13 23:24] LABS: BILIRUBIN Negative (Negative); BLOOD Negative (Negative); CLARITY Clear (Clear); COLOR Yellow (Yellow); KETONE Negative (Negative); LEUKO ESTERASE Negative (Negative); NITRITE Negative (Negative); PH 6.5 (4.5-8.0); SPECIFIC GRAVITY 1.020 (1.001-1.030); UROBILINOGEN 0.2 E.U./dl (0.0-1.0)
[2024-12-13] MEDS ORDERED: DERMABOND 1 EA APPL T ONE (23:29)
== END 2024-12-14 01:55 | disposition home or self-care (01) ==
LOC: ED 20:41
PROVIDERS: Nurse Practitioner Family
DX: S01.81XA Laceration without foreign body of other part of head, initial encounter (principal); E87.1 Hypo-osmolality and hyponatremia; R42 Dizziness and giddiness; F03.90 Unspecified dementia, unspecified severity, without behavioral disturbance, psychotic disturbance, mood disturbance, and anxiety; E78.5 Hyperlipidemia, unspecified; K21.9 Gastro-esophageal reflux disease without esophagitis; I12.9 Hypertensive chronic kidney disease with stage 1 through stage 4 chronic kidney disease, or unspecified chronic kidney disease; E11.22 Type 2 diabetes mellitus with diabetic chronic kidney disease; N18.9 Chronic kidney disease, unspecified; Z88.0 Allergy status to penicillin; Z88.8 Allergy status to other drugs, medicaments and biological substances; Z79.899 Other long term (current) drug therapy; Z79.82 Long term (current) use of aspirin; Z79.4 Long term (current) use of insulin; Z98.890 Other specified postprocedural states; W06.XXXA Fall from bed, initial encounter; Y93.89 Activity, other specified; Y92.89 Other specified places as the place of occurrence of the external cause; Y99.8 Other external cause status